=== PATIENT | male | born 2000 | race Caucasian/White ===

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

== ENCOUNTER 2023-09-19 21:11 | Emergency (ER) | payer OTHER, SELFPAY ==
--- NOTE | ~2023-09-19 | XR_ITS ---
EXAMINATION: XR finger 4th LT min 2V DATE: 09/19/2023 21:39 INDICATION: Left hand fourth digit injury. TECHNIQUE: 3 views of left hand fourth digit were obtained. COMPARISON: None. FINDINGS: There is an oblique fracture of fourth distal phalanx. The distal fracture fragment demonst rates 90 degrees dorsal angulation. Joint spaces are normal. IMPRESSION: 1. Oblique fracture of fourth distal phalanx. Reviewed, dictated and finalized at location E. TABLE HARVEST WORKER
--- NOTE | ~2023-09-19 | XR_ITS ---
EXAMINATION: XR finger 4th LT min 2V DATE: 09/19/2023 22:42 INDICATION: Fracture of left hand fourth distal phalanx status post reduction. TECHNIQUE: 2 views of left hand fourth digit were obtained. COMPARISON: Left hand fourth digit radiographs at 9:36 PM FINDINGS: There is an oblique extra-articular fracture of fourth distal phalanx in near-anatomic alig nment status post reduction. Joint spaces are normal. IMPRESSION: 1. Oblique fracture of fourth distal phalanx in near-anatomic alignment. Reviewed, dictated and finalized at location E. NG POWDER MIXER
[2023-09-19 21:18] VITALS: BP 125/71; PULSE 90; RESP 20; TEMP 37.2; O2SAT 100
--- NOTE | 2023-09-19 22:16 | ED.UPPEXIN ---
HPI - Extremity Injury (Upper) General Chief Complaint: Extremity Injury, Upper Stated Complaint: finger injury Time Seen by Provider: 09/19/23 22:02 Source: patient Mode of arrival: ambulatory Limitations: no limitations History of Present Illness HPI narrative: Patient is a 23-year-old male who presents the ED with injury to his left 4th digit. Patient reports he was playing flag football prior to arrival and dove to grab a flag when he sustained injury to his left 4th digit. Deformity noted to tip of finger. Patient denies significant pain at this time. No other injuries. Denies numbness or tingling. Denies wound. Related Data Allergies Allergy/AdvReac Type Severity Reaction Status Date / Time No Known Allergies Allergy Mild Verified 06/03/23 15:39 Review of Systems Review of Systems: CONSTITUTIONAL: Denies fever, chills, or sweats. MUSCULOSKELETAL: See HPI. NEUROLOGIC: Denies tingling, numbness, or weakness. All systems reviewed & are unremarkable except as noted in HPI and below PMFSH Surgical History Surgical History Hx of shoulder surgery Family History Family History Grandparent Diabetes mellitus Social History Social History Smoking status: Never smoker Alcohol intake: never Substance use: never Substance use type: does not use Occupation/Education: student Exam Narrative: GENERAL: Well appearing, well-nourished, non-toxic, in no acute distress. HEAD: Normocephalic, atraumatic. RESPIRATORY: Airway patent, respirations nonlabored. CARDIOVASCULAR: Regular rate and rhythm. Radial pulses 2+. MUSCULOSKELETAL: Moves all extremities. Deformity noted to left 4th digit with DIP portion of finger flexed upward dorsally, dislocation versus fracture deformity. Sensation intact. Capillary refill intact to distal tip. Skin intact, no wounds or lacerations. SKIN: Warm, dry, normal color. NEURO: A&O X3. Speech clear. PSYCHIATRIC: Appropriate mood and affect. Normal interaction. Course Vital Signs Vital signs: Vital Signs Temperature 99.0 F 09/19/23 21:18 Pulse Rate 90 09/19/23 21:18 Respiratory Rate 20 09/19/23 21:18 Blood Pressure 125/71 09/19/23 21:18 Pulse Oximetry 100 09/19/23 21:18 Temperature 98.1 F 09/19/23 22:58 Pulse Rate 77 09/19/23 22:58 Respiratory Rate 16 09/19/23 22:58 Blood Pressure 106/82 09/19/23 22:58 Pulse Oximetry 100 09/19/23 22:58 Procedures Nerve Block Nerve Block 1: Nerve block date: 09/19/23 Nerve block time: 22:17 Time out performed: Yes Local Anesthetic: lidocaine 1% Amount of anesthesia used (mL): 5 Side: left Nerve Blocks: digital (4th digit) Procedure Successful: Yes Patient Tolerated Procedure: well and no complications Complications: none Orthopedic Fracture Reduction Fracture #1: Fracture Reduction date: 09/19/23 Fracture Reduction time: 22:33 Time Out Performed: Yes Side: left Fracture Reduction Location: finger (distal phalanx) Analgesia: nerve block Pre-Procedure Neuro Vascular Exam: normal Technique: direct manipulation Post Reduction X-rays Demonstrate: anatomical reduction Post-reduction neuro exam: intact and no change Post-reduction vascular exam: intact and no change Splint Applied: Yes Patient Tolerated Procedure: well and no complications MDM - Extremity Injury (Upper) MDM Narrative Medical decision making narrative: Patient presents to ED with injury/deformity to left 4th digit. Patient in no acute distress. Neurovascularly intact. Sensation intact. X-ray showing oblique fracture of distal phalanx. No dislocation. Closed fracture. Digital nerve block performed.
[2023-09-19] MEDS: HYDROcodone/acetaminophen (*CRX) 5-325 MG TABLET 1 TAB PO (22:53)
[2023-09-19 22:58] VITALS: BP 106/82; PULSE 77; RESP 16; TEMP 36.7; O2SAT 100
== END 2023-09-19 22:59 | disposition home or self-care (01) ==
PROVIDERS: Emergency Provider Physician Assistant; PCP Family Medicine
DX: S62.635A Displaced fracture of distal phalanx of left ring finger, initial encounter for closed fracture (principal); W18.39XA Other fall on same level, initial encounter; Y93.62 Activity, american flag or touch football
CPT/HCPCS: 26755; 73140; 99285; A9270

== ENCOUNTER 2023-10-07 13:33 | Outpatient (CLI) | payer OTHER, SELFPAY ==
--- NOTE | ~2023-10-07 | XR_ITS ---
EXAMINATION: XR finger 4th LT min 2V DATE: 10/07/2023 13:56 INDICATION: Nondisplaced fracture of the left fourth distal phalanx TECHNIQUE: Dorsal palmar, lateral and 2 oblique views of the left fourth digit were obtained COMPARISON: None FINDINGS: No significant interval change in a nondisplaced oblique extra articular diaphyseal fracture of the l eft fourth distal phalanx with minimal dorsal angulation. Alignment remains near-anatomic. No product homa changes of healing yet apparent. No other fractures identified. Joint spaces are normal. Mild sof t tissue swelling about the left fourth distal phalanx. IMPRESSION: 1. Nondisplaced fracture of the fourth distal phalanx which remains in near-anatomic alignment with n o productive changes of healing yet apparent. Reviewed, dictated and finalized at location A. HOUSE HANDLER IMPRESSION: 1. Nondisplaced fracture of the fourth distal phalanx which remains in near-marly tomic alignment with no productive changes of healing yet apparent.
== END 2023-10-07 13:34 | disposition home or self-care (01) ==
LOC: ANHIMG 13:35
PROVIDERS: PCP Family Medicine; Visit Provider Plastic Surgery
DX: S62.665A Nondisplaced fracture of distal phalanx of left ring finger, initial encounter for closed fracture (principal); X58.XXXA Exposure to other specified factors, initial encounter
CPT/HCPCS: 73140

== ENCOUNTER 2023-10-24 13:40 | Outpatient (CLI) | payer OTHER, SELFPAY ==
--- NOTE | ~2023-10-24 | XR_ITS ---
EXAMINATION: XR finger 4th LT min 2V INDICATION: Left fourth finger fracture follow-up TECHNIQUE: Two views of the left fourth finger are obtained. COMPARISON: 10/07/2023 FINDINGS: Again noted is an oblique diaphyseal fracture of the fourth distal phalanx. There is mild d orsal angulation without significant change. The fracture line is only faintly less visible than on t he comparison examination. No additional fracture is identified. The joint spaces are normal. IMPRESSION: 1. Nondisplaced fracture of the fourth distal phalanx with minimal healing change. Reviewed, dictated and finalized at location F. F BLENDER IMPRESSION: 1. Nondisplaced fracture of the fourth distal phalanx with minimal healing maday davies
== END 2023-10-24 13:41 | disposition home or self-care (01) ==
LOC: ANHIMG 13:42
PROVIDERS: PCP Family Medicine; Visit Provider Physician Assistant Surgical
DX: S62.635D Displaced fracture of distal phalanx of left ring finger, subsequent encounter for fracture with routine healing (principal); X58.XXXD Exposure to other specified factors, subsequent encounter
CPT/HCPCS: 73140